=== PATIENT | male | born 1985 | race Caucasian/White ===

== ENCOUNTER → 2019-06-06 | Outpatient (CLI) | payer OTHER, SELFPAY ==
--- NOTE | 2019-06-06 08:53 | RAD_ITS ---
STUDY: X-RAY - LEFT SHOULDER REASON FOR EXAM: Injury. TECHNIQUE: 4 view(s) of the shoulder. COMPARISON: None. FINDINGS: Normal glenohumeral articulation. Normal acromioclavicular joint. Normal acromion. Normal humeral head and visualized proximal humerus. The soft tissue structures are unremarkable. Normal visualized pulmonary apex. RAD/Shoulder min 2 Views IMPRESSION: Normal x-ray examination of the left shoulder. Electronically Signed: Be Hill MD at 10:47 EDT Tel , Service support ,
== END | disposition home or self-care (01) ==
LOC: HPRAD 08:53
PROVIDERS: Family Provider Internal Medicine; PCP Internal Medicine; Referring Provider Orthopaedic Surgery; Visit Provider Orthopaedic Surgery
DX: S49.92XA Unspecified injury of left shoulder and upper arm, initial encounter (principal)
CPT/HCPCS: 73030

== ENCOUNTER 2019-10-18 06:24 | Day surgery (SDC) | payer OTHER, BC, SELFPAY ==
[2019-09-28 13:58] VITALS: BMI 30.3
[2019-10-18] VITALS (7 sets, daily range): BP systolic 95–144; BP diastolic 55–94; PULSE 51–91; RESP 14–16; TEMP 36.2–36.9; O2SAT 92–98; BMI 29.9
--- NOTE | 2019-10-18 | TESH_PTH ---
PATIENT: PIERO WARREN LOC: [facility] [place] U#:[id number] AGE/SX: 33/M ROOM: RE10/18/[address]: Dr. Lea Chatman DO : 1985 BED: DIS: 10/18/2019 SPEC #: [id number] RECD: 10/18/19 12:54 STATUS: DOUG REStephanie #: [id number] ALICIA: 10/18/19 00:[address]: Lea Chatman DEPT: SURGICAL PATHOLOGY RECD BY: Clint Reese ENTERED: 10/18/19 12:54 SP TYPE: TENDON OTHR DR: Dr. Fatou Rodriguez MD Tissues: Tendon and tendon sheath, NOS Procedures: Surgery Specimen Level III HEADER OPERATION: Arthroscopy shoulder, posterior labral repair, rotator cuff repair PRE-OP DIAGNOSIS: Strain of muscle and tendon of left rotator cuff/shoulder; bicep tendonitis TISSUE SUBMITTED: Bicep tendon MICROSCOPIC DIAGNOSIS Biceps tendon, excision: Degenerative and reparative change. AM:marlene 10/19/19 MICROSCOPIC DESCRIPTION Slides are reviewed. GROSS DESCRIPTION Received in fixative is one container labeled with the patient's name and designated bicep tendon. The specimen consists of post tendinous tissue measuring 5 x 0.7 x 0.2 cm. The specimen is sectioned longitudinally and transversely and submitted entirely in one cassettes. / SJ:marlene 10/18/19 TC:5 CPT: 55597
[2019-10-18] MEDS: Lactated Ringers 1,000 ML 100 ML IV ×2 (07:05→11:57)
--- NOTE | 2019-10-18 07:34 | PCM.HP.BLA ---
History and Physical I have re-examined the patient. There are no clinical changes since date of exam. Intake Intake Visit Reasons: left shoulder Allergies Penicillins Allergy (Unknown, Verified 06/06/19 08:54) unknown Medications ibuprofen 200 mg tablet 800 mg PO Q6H PRN tab 06/06/19 [History Confirmed 09/28/19] PFSH Social History (Updated 10/04/19 @ 10:[address] Lea Chatman, ) Smoking Status: Never smoker HPI left shoulder: Details: Parts of this documentation were recorded by a scribe, this documentation accurately reflects the service provided and the decisions made by me, Dr. Lea Chatman, 09/28/19 [id number]. PIERO WARREN is a 33 year old M here today for F/U on left shoulder. Patients DOI 05/09/19 and then the second time on 05/11/19. States he is still having pain over his anterior shoulder. Continues to have limited ROM and tenderness over is biceps. Denies numbness, tingling or other associated symptoms. His additional codes have been allowed. ROS Musc Reports joint pain, Denies joint swelling, Denies numbness, Reports stiffness, Denies tingling Skin/Breast Denies redness, Denies lesions, Denies itching, Denies rash, Denies skin swelling Neuro No numbness, No tingling Ortho Exam Left Shoulder Testing: Yes TTP Biceps, Yes translation Assessment & Plan Problems 1. Strain of muscle(s) and tendon(s) of the rotator cuff of left shoulder, initial encounter S46.012A 2. Superior glenoid labrum lesion of left shoulder, initial encounter S43.432A 3. 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 Biceps tendinitis of left shoulder M75.22 Plan Reviewed the post op restrictions and the time off. Explained the difference between biceps tenotomy vs tenodesis Reviewed the pre-operative plans with the patient. Risks and benefits of the procedure were fully explained, including but not limited to infection, neurovascular injury, continued pain, arthritis, stiffness, need for further surgery, re-injury, DVT, PE, general risks of anesthesia, and loss of limb or life. The patient understands all the risks and does wish to proceed with written consent. Follow up post op or sooner if pain, swelling, numbness or associated symptoms, or concerns develop. All questions answered. Patient in agreement of plan. 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
--- NOTE | 2019-10-18 07:39 | PCM.DC.ORTHO ---
Discharge Diet: No Restrictions - May remove dressings in 4 days and apply Band-Aids to incision sites, may remove sling to do pendulum exercises only, may get incision wet in shower after 4 days, follow-up in 2 weeks or sooner if other issues arise Discharge Activity: May Not Drive May shower in (days): 1 Ice area for (Minutes): 20 - Every hour while awake. Weight Bearing Status: Weight bearing as tolerated Keep extremity elevated above heart level: Operative Extremity Call your doctor if your incision/area has: Continuous Slow Oozing, Sudden Increased Bleeding, Increased Pain/ Swelling, Increased Redness, Foul Smelling Discharge Call your doctor if you observe: Fever of 101 or Higher, Coldness, Increased Pain, Numbness or Tingling, Change in Color, Calf discomfort Allergies/Adverse Reactions: Allergies Penicillins Allergy (Unknown, Verified 10/11/19 13:10) unknown Medications to take at Discharge ibuprofen 200 mg tablet 800 mg PO Q6H PRN tab 06/06/19 Oxycodone HCl/Acetaminophen [Percocet 5/325] 1 - 2 tab PO Q6H PRN PRN 5 Days #28 tab 10/18/19 Zolpidem Tartrate [Ambien (Generic)] 5 mg PO QHS PRN PRN #14 tab 10/18/19 The following prescriptions were given: Zolpidem Tartrate [Ambien (Generic)] 5 mg PO QHS PRN PRN #14 tab PRN Reason: Insomnia Transmission Status: Sent to [facility] Oxycodone HCl/Acetaminophen [Percocet 5/325] 1 - 2 tab PO Q6H PRN PRN 5 Days #28 tab PRN Reason: Pain Transmission Status: Sent to [facility] Primary Care Physician: Fatou Rodriguez MD [Primary Care Provider] - Test Results: Test results from this visit will be discussed in further detail at your follow-up appointment, if applicable. Please Follow Up With: Lea Chatman, - [phone]
--- NOTE | 2019-10-18 07:45 | OP.PCM_ITS ---
Report of Operation Anesthesiologist: Danny Eddy Estimated Blood Loss (mL): min Fluids Replaced: 1700cc lr Description of Procedure: Preoperative note Patient is a 33-year-old male with known left shoulder issue after sustaining a work and an injury at work. He has instability posteriorly as well as pain anteriorly over his biceps. Patient failed conservative treatment including therapy MRI confirms posterior labral tear as well as biceps tendinosis as well as a labral tear on the superior aspect extending anterior to posterior SLAP tear. Patient also has subacromial impingement as well as a questionable tendinosis of his subscap. Risk benefits and alternatives were discussed with patient. Risks include but not limited to blood loss, blood clot, infection, neurovascular injury, failure procedure, need for revision surgery, arthritis, loss of life and loss of limb. Patient is aware like proceed with left shoulder arthroscopy repair as indicated. Operative note Patient seen and examined preoperative holding area. Left arm was marked. Patient brought to the operating placed supine on the operating table. Signed, anesthesia, antibiotics were administered. Left arm was prepped and draped usual sterile fashion all bony problems well-padded SCDs placed on his bilateral lower extremity. He was placed in beachchair positioning half-way half-way through beachchair position we did recheck his blood pressure which was stable throughout. We marked out our incision for landmarks for portal placement. The timeout was performed. We insufflated the joint from the posterior aspect. He had good return. We then created our posterior portal. Began our diagnostic arthroscopy. His anterior labrum was intact. The subscap was intact. We then created an anterior portal under direct visualization. We pulled the biceps into the joint we noted that there is some tendinosis of the biceps and there was also a SLAP tear on the superior leading edge extending posteriorly. There were no loose bodies in the inferior recess the rotator cuff footprint was intact as well as the subscap as aforementioned. We then introduced basket and detach the back the biceps from its insertion on the labrum. We then inserted a shaver and debride back the labral insertion on the labrum to stable rim. We then visualized the posterior aspect of the labrum which was torn off extending from the 5 to 7 o'clock position extending elevate up. We then placed a suture tack Arthrex on the inferior aspect did a horizontal mattress brought up some of but noted that we wanted little bit more of the capsule brought back and brought up a little bit more superior so we did place the same stitch into the 2 2 ends into a push lock more superiorly and this did relieve right bring up the IGH L as well as brought the capsule and created better bump first. We then did the same thing on more superiorly and placed our second suture shaft we noted that we could not having as much mobility of the after performing a horizontal mattress to get a good bumper to place another push lock more superiorly as well. This created a great bump for us the humeral head was then centered along the 50 yard line. We then irrigated the shoulder with copious nonsterile saline. We moved the subacromial decompression. This was done extensive bursitis throughout. We created a lateral portal and direct visualization. We use a combination of a shaver and ablator to clean back and resect the extensive bursitis that was throughout his shoulder and did trim back his acromion anteriorly as well. We then moved her open biceps tenodesis. We reprepped the area where the allotted 3 minutes used a 15 blade at the area and we made a 2 cm incision just distal to the pec insertion. Dissected down tenotomies to level the level of the biceps peritenon this was excised the biceps that was cut intra-articularly was brought out of the incision we measured appropriate length and truncated the biceps and sent it to pathology for further evaluation. We whipstitched the end of the biceps tendon and placed the back pec button on the end in standard technique. We then drilled unicortical length of the pec button into the humeral shaft and then oversewed the tendon down to the periosteum. This is done in standard technique technique. The incision was then irrigated with copious amounts of sterile saline. The incision was closed with 3-0 Vicryl and a running 4-0 Monocryl for the anterior incision for the biceps and the portals were closed interrupted 4-0 nylon stitches. Sterile dressings were applied. Patient was placed in a sling. Patient taught procedure well no complication child recovery room in stable condition. Please note patient received a preoperative regional interscalene block Postoperative note Nonweightbearing left arm Sling at all times Call with increased pain numbness tingling further issues arise Follow-up in 2 weeks Call with concerns Pharmacy has prescriptions Dragon disclaimer This note was generated with webmeation software. It may contain incorrect words, spelling, and punctuation that were not noted in checking the note before signing. Grafts/Implants Used: arthrex suture 2 tacks, 2 pushlock
[2019-10-18] MEDS: Cefazolin 2 GM in 0.9% Normal Saline 100 ML IV (07:58)
[2019-10-18] MEDS: Epinephrine (1 mg/ml) 1 MG/ML VIAL (09:34)
[2019-10-18] MEDS: Mupirocin Ointment 22gm Tube 1 APPLIC (10:27)
== END 2019-10-18 13:57 | disposition home health service (06) ==
LOC: SDC 06:27 → AC 06:28
PROVIDERS: PCP Internal Medicine; Referring Provider Orthopaedic Surgery; Visit Provider Orthopaedic Surgery
PROC: (CPT 29827; principal; 2019-10-18 07:40)
DX: S43.432A Superior glenoid labrum lesion of left shoulder, initial encounter (principal); S46.012A Strain of muscle(s) and tendon(s) of the rotator cuff of left shoulder, initial encounter; M75.22 Bicipital tendinitis, left shoulder; M25.312 Other instability, left shoulder; X58.XXXA Exposure to other specified factors, initial encounter; Y93.9 Activity, unspecified; Y92.9 Unspecified place or not applicable
CPT/HCPCS: 01716; 23430; 29807; 29826; 29827; 88304; J7120

== ENCOUNTER → 2022-04-17 | Outpatient (CLI) | payer OTHER, SELFPAY ==
[2022-04-17 11:56] LABS: Absolute Lymphocyte Count 1.85 X10^3/uL (0.83-4.51); Absolute Neutrophil Count 2.9 X10^3/uL (2.0-7.7); Basophil# 0.03 X10^3/uL; Basophil% 0.6 % (0-1); Eosinophil# 0.02 X10^3/uL; Eosinophils% 0.4 % (0-5); Hematocrit 46.1 % (40-54); Hemoglobin 15.8 g/dL (13.0-16.5); Lymphocyte # 1.85 X10^3/ul (0.83-4.51); Lymphocyte % 35.1 % (19-41); Mean Corp Hgb Conc 34.3 g/dL (32-36); Mean Corpuscular Hgb 29.9 pg (27.0-32.0); Mean Corpuscular Volume 87.3 fL (80-94); Mean Platelet Vol. 9.8 fl (6.2-12.0); Monocyte% 9.5 % (0-10); NRBC Flagged by Analyzer 0 % (0-5); Neutrophil # 2.85 X10^3/uL (2.7-7.7); Platelet Count 260 K/mm3 (150-450); RBC Distribution Width CV 12.4 % (11.6-14.6); RBC Distribution Width SD 39.7 fl (35.1-43.9); Red Blood Count 5.28 M/mm3 (4.6-6.2); White Blood Count 5.3 K/mm3 (4.4-11.0)
[2022-04-17 12:17] LABS: ALB/GLOB Ratio 1.1 RATIO (0.9-2.4); AST(SGOT) 22 U/L (15-37); Alanine Aminotransfer ALT/SGPT 47 U/L (16-61); Albumin, Serum 4.2 g/dL (3.2-5.0); Alkaline Phosphatase 58 U/L (45-117); Anion Gap 8 (5-15); BUN 15 mg/dL (7-18); BUN/Creat Ratio 13.5 RATIO (10-20); Calcium,Total 9.5 mg/dL (8.5-10.1); Chloride 103 mmol/L (98-107); Cholesterol 237 mg/dL (200); Creatinine, Serum 1.11 mg/dL (0.70-1.30); EST Glomerular Filtration Rate 80 mL/min (>60); Est Glom Filt Rate - Afr Amer 97 mL/min (>60); Globulin 3.7 g/dL (2.2-4.2); Glucose 90 mg/dL (74-106); High Density Lipoprotein 39 mg/dL; Potassium 4.2 mmol/L (3.5-5.1); Protein, Total 7.9 g/dL (6.4-8.2); Sodium Level 138 mmol/L (136-145); Thyroid Stim Hormone (TSH) 1.97 uIU/mL (0.358-3.74); Triglycerides 183 mg/dL; Very Low Density Lipoprotein 37 mg/dL (5-40)
== END | disposition home or self-care (01) ==
LOC: BIMLAB 08:43
PROVIDERS: PCP Nurse Practitioner Family; Visit Provider Nurse Practitioner Family
DX: Z00.00 Encounter for general adult medical examination without abnormal findings (principal)
CPT/HCPCS: 36415; 80053; 80061; 84443; 85025

== ENCOUNTER → 2022-09-29 | Outpatient (CLI) | payer OTHER, SELFPAY | END | disposition home or self-care (01) | PROVIDERS: PCP Nurse Practitioner Family; Referring Provider Nurse Practitioner Family; Visit Provider Nurse Practitioner Family | DX: J02.9 Acute pharyngitis, unspecified (principal) | CPT/HCPCS: 87070 ==

== ENCOUNTER → 2024-04-18 | Outpatient (CLI) | payer OTHER, SELFPAY ==
[2024-04-18 10:27] LABS: Absolute Lymphocyte Count 2.29 X10^3/uL (0.83-4.51); Absolute Neutrophil Count 2.4 X10^3/uL (2.0-7.7); Basophil# 0.04 X10^3/uL; Basophil% 0.8 % (0-1); Eosinophil# 0.05 X10^3/uL; Eosinophils% 0.9 % (0-5); Hematocrit 45.7 % (40-54); Hemoglobin 15.4 g/dL (13.0-16.5); Lymphocyte # 2.29 X10^3/ul (0.83-4.51); Lymphocyte % 43.2 % (19-41); Mean Corp Hgb Conc 33.7 g/dL (32-36); Mean Corpuscular Hgb 29.5 pg (27.0-32.0); Mean Corpuscular Volume 87.5 fL (80-94); Mean Platelet Vol. 9.2 fl (6.2-12.0); Monocyte# 0.48 X10^3/uL; Monocyte% 9.1 % (0-10); NRBC Flagged by Analyzer 0 % (0-5); Neutrophil # 2.42 X10^3/uL (2.7-7.7); Neutrophil % 45.6 % (47-70); Platelet Count 236 K/mm3 (150-450); RBC Distribution Width CV 12.3 % (11.6-14.6); RBC Distribution Width SD 39.8 fl (35.1-43.9); Red Blood Count 5.22 M/mm3 (4.6-6.2); White Blood Count 5.3 K/mm3 (4.4-11.0)
[2024-04-18 10:47] LABS: Vitamin B12 389 pg/mL (211-911); Vitamin D,25 Hydroxy 28.3 ng/mL
[2024-04-18 11:27] LABS: ALB/GLOB Ratio 1.2 RATIO (0.9-2.4); AST(SGOT) 16 U/L (15-37); Alanine Aminotransfer ALT/SGPT 33 U/L (16-61); Albumin, Serum 4.1 g/dL (3.2-5.0); Alkaline Phosphatase 64 U/L (45-117); Anion Gap 6 (5-15); BUN 12 mg/dL (7-18); BUN/Creat Ratio 11.4 RATIO (10-20); Calcium,Total 9.6 mg/dL (8.5-10.1); Chloride 107 mmol/L (98-107); Cholesterol 201 mg/dL (200); Creatinine, Serum 1.05 mg/dL (0.70-1.30); EST Glomerular Filtration Rate 85 mL/min (>60); Est Glom Filt Rate - Afr Amer 103 mL/min (>60); Globulin 3.5 g/dL (2.2-4.2); Glucose 97 mg/dL (74-106); High Density Lipoprotein 45 mg/dL; Potassium 4.3 mmol/L (3.5-5.1); Protein, Total 7.6 g/dL (6.4-8.2); Sodium Level 138 mmol/L (136-145); Triglycerides 172 mg/dL; Very Low Density Lipoprotein 34 mg/dL (5-40)
[2024-04-18 13:08] LABS: Hemoglobin A1c 5.4 % (3.8-5.6)
[2024-04-23 19:15] LABS: Testosterone, % Free 3.86 % (1.50-4.20); Testosterone, Free 11.39 ng/dL (5.00-21.00); Testosterone, Total 295 ng/dL (264-916)
== END | disposition home or self-care (01) ==
LOC: VSLAB 08:03
PROVIDERS: PCP Nurse Practitioner Family; Visit Provider Nurse Practitioner Family
DX: Z00.00 Encounter for general adult medical examination without abnormal findings (principal); N52.9 Male erectile dysfunction, unspecified; E56.9 Vitamin deficiency, unspecified
CPT/HCPCS: 36415; 80053; 80061; 82306; 82607; 83036; 84402; 84403; 84443; 85025

== ENCOUNTER 2024-10-24 15:56 | Outpatient (RCR) | payer OTHER, SELFPAY | END 2024-10-24 19:00 | disposition home or self-care (01) | LOC: PT 15:56 | PROVIDERS: PCP Nurse Practitioner Family; Referring Provider Nurse Practitioner Family; Visit Provider Nurse Practitioner Family | DX: M25.512 Pain in left shoulder (principal) ==

== ENCOUNTER → 2024-11-14 | Outpatient (CLI) | payer OTHER, SELFPAY ==
--- NOTE | 2024-11-14 08:25 | VDLE_ITS ---
Reason For Study Reason For Study: Pain in right lower leg RIGHT LEFT GSV is normal. CFV is compressible, spontaneous, phasic, competent, CFV is compressible, phasic, and INCOMPETENT for and demonstrates normal augmentation. greater than 1.0 second. FV is compressible, spontaneous, phasic, competent and demonstrates normal augmentation. POP V is compressible, spontaneous, phasic, competent and demonstrates normal augmentation. T/P Trunk is compressible. PTV is compressible. RT PerV is compressible. Procedure This is a venous duplex using B-mode, color flow and spectral Doppler. Exam performed in department. A preliminary report was called and/or faxed to Desiree Cano NP. VL/Venous Duplex US, Unilateral Interpretation Summary Deep veins of the right lower extremity are patent and compressible segmentally . There is no evidence of right lower extremity deep vein thrombosis. The right great saphenous vein appears patent a nd compressible segmentally. Positive for reflux in the right common femoral vein Ordering Physician: Desiree Cano Referring Physician: Desiree Cano Performed By: Vickie Muñoz RVT
--- NOTE | 2024-11-14 08:27 | RAD_ITS ---
PROCEDURE: TIBIA FIBULA 2 VIEWS 11/14/2024 REASON FOR EXAM: PAIN IN RIGHT LOWER LEG, right foot swelling and calf pain. TECHNIQUE: 4 views of the right tibia and fibula COMPARISON: None FINDINGS: Bones: No acute fracture. No aggressive osseous lesions. Joints: Normal alignment. Joint spaces preserved. No arthropathic features. Soft tissues: Soft tissues are unremarkable. Other: No radiopaque foreign body. RAD/Tibia & Fibula 2 Views IMPRESSION: NEGATIVE TIBIA AND FIBULA Reading Location: [id number]
== END | disposition home or self-care (01) ==
PROVIDERS: PCP Nurse Practitioner Family
DX: M79.661 Pain in right lower leg (principal)
CPT/HCPCS: 73590; 93971

== ENCOUNTER → 2025-06-19 | Outpatient (CLI) | payer OTHER, SELFPAY ==
[2025-06-19 12:10] LABS: Color, Urine Yellow (Yellow); Glucose, Dipstick Normal (Normal); Ketone-Dipstick Negative (Negative); Leukocyte Esterase-Dipstick Negative /ul (Negative); Nitrite-Dipstick Negative (Negative); Occult Blood-Urine Negative /ul (Negative); Protein-Dipstick 15 mg/dl (Negative); Specific Gravity, Urine 1.020 (1.002-1.030); Urine Bilirubin Dipstick Negative (Negative)
[2025-06-19 12:28] LABS: Hematocrit 46.0 % (40-54); Hemoglobin 15.7 g/dL (13.0-16.5); Immature Granulocytes Count 0.040 X10^3/uL (0.0-0.0); Mean Corp Hgb Conc 34.1 g/dL (32-36); Mean Corpuscular Volume 88.1 fL (80-94); Mean Platelet Vol. 9.9 fl (6.2-12.0); NRBC Flagged by Analyzer 0 % (0-5); Platelet Count 277 K/mm3 (150-450); RBC Distribution Width CV 12.7 % (11.6-14.6); RBC Distribution Width SD 41.4 fl (35.1-43.9); Red Blood Count 5.22 M/mm3 (4.6-6.2); White Blood Count 5.6 K/mm3 (4.4-11.0)
[2025-06-19 12:51] LABS: AST(SGOT) 24 U/L (<=37); Alanine Aminotransfer ALT/SGPT 31 U/L (<=46); Albumin, Serum 4.5 g/dL (3.5-5.0); Alkaline Phosphatase 59 U/L (40-129); Anion Gap 11 (5-15); BUN 16 mg/dL (4-19); BUN/Creat Ratio 16.8 RATIO (10-20); Calcium,Total 9.6 mg/dL (7.6-11.0); Carbon Dioxide 24.1 mmol/L (21.0-32.0); Chloride 103 mmol/L (98-108); Cholesterol 219 mg/dL (<=200); Globulin 2.9 g/dL (2.2-4.2); Glucose 100 mg/dL (70-99); Low Density Lipoprotein Calc. 140 mg/dL; Potassium 4.5 mmol/L (3.3-5.1); Triglycerides 242 mg/dL; Very Low Density Lipoprotein 48 mg/dL (5-40); cholesterol:hdl ratio screen 6.15
== END | disposition home or self-care (01) ==
LOC: VSLAB 08:07
PROVIDERS: PCP Nurse Practitioner Family
DX: Z00.00 Encounter for general adult medical examination without abnormal findings (principal)
CPT/HCPCS: 36415; 80053; 80061; 81002; 83036; 84443; 85025